=== PATIENT | male | born 1955 | race Caucasian/White ===

== ENCOUNTER 2017-09-23 13:42 | Inpatient (IN) | payer OTHER ==
[2017-09-23] VITALS (9 sets, daily range): BP systolic 85–105; BP diastolic 41–58
[~2017-09-23] VITALS: Ht 162.6 cm; Wt 61.0 kg
[2017-09-23] MEDS ORDERED: DEXTROSE 50% 25 GM / 50ML DISP.SYRIN. IV ONE ×3 (14:00→19:45)
[2017-09-23 14:23] LABS: BARBITURATES NEG (NEG); BENZODIAZEPINES NEG (NEG); CANNABINOIDS NEG (NEG); COCAINE NEG (NEG); METHADONE NEG (NEG); OPIATES POS (NEG); PHENCYCLIDINE NEG (NEG)
[2017-09-23 14:28] LABS: AMPHETAMINE/METHAMPHETAMINE NEG (NEG)
[2017-09-23] MEDS ORDERED: INSULIN REGULAR 100 UNIT/ML 3ML VIAL. IV ONE ×2 (14:30→17:00)
[2017-09-23] MEDS ORDERED: ALBUTEROL SULFATE 2.5 MG/3 ML NEBU. CONT NEB ONE (14:30)
[2017-09-23] MEDS ORDERED: SODIUM BICARB ADULT 8.4% 50 MEQ/50 ML DISP.SYRIN. IV ONE ×2 (14:30→21:00)
[2017-09-23 14:38] LABS: BACTERIA,URINE 0 /HPF (0-FEW); BILIRUBIN,URINE NEG (NEG); CLARITY,URINE CLEAR; COLOR,URINE AMBER; GLUCOSE,URINE NEG (NEG); NITRITE,URINE NEG (NEG); RBC,URINE 0 /HPF (0-2); UROBILINOGEN,URINE 1 mg/dL (0.2 mg/dL); WBC,URINE RARE /HPF (0-4)
[2017-09-23 14:39] LABS: HYALINE CASTS, URINE FEW /HPF
--- NOTE | 2017-09-23 14:44 | RAD ---
CT HEAD WO CONTRAST Indication: altered mental status Exposure: One or more of the following individualized dose reduction techniques were utilized for this examination: 1. Automated exposure control 2. Adjustment of the mA and/or kV according to patient size 3. Use of iterative reconstruction technique. Comparison: None are available. Contrast: None FINDINGS: Posterior fossa is unremarkable. No evidence of acute intracranial hemorrhage or abnormal extra-axial fluid collection. No evidence of mass effect or midline shift. Small well-defined low-density foci in the periventricular white matter bilaterally, likely small lacunar infarcts. Mild prominence of ventricles and sulci compatible with mild involutional change or atrophy. Mild arterial vascular calcification. Visualized orbits are unremarkable. Visualized paranasal sinuses and mastoids are clear. No acute calvarial abnormality. Impression: 1. Small bilateral white matter well-defined low density foci, likely small lacunar infarcts. 2. No evidence of acute intracranial hemorrhage or mass effect. Electronically signed by: Devin Sutherland MD (09/23/2017 2:40 PM) [id number]
--- NOTE | 2017-09-23 14:45 | RAD ---
PORTABLE CHEST 1V Clinical Indication: short of breath, unresponsive Comparison: None. Findings: Atherosclerotic aortic arch. Cardiac size is normal. There are increased interstitial markings. No focal airspace disease. There is no pneumothorax. No pleural effusion is appreciated. No acute bone abnormality. IMPRESSION: Increased interstitial markings. Considerations include interstitial edema or chronic interstitial lung disease. Electronically signed by: Edmund Murphy MD (09/23/2017 2:42 PM) [id number]
[2017-09-23 14:46] LABS: BGAS PH 7.18 (7.35-7.46)
[2017-09-23 14:49] LABS: BASO # 0.1 x10^3/uL (0.0-0.2); BASO % 1 % (0-3); EOS # 0.2 x10^3/uL (0.0-0.7); EOS % 2 % (0-3); HEMATOCRIT 51.2 % (39.0-53.0); HEMOGLOBIN 15.9 g/dL (13.0-17.5); LYMPH # 0.4 x10^3/uL (1.0-4.8); LYMPH % 4 % (24-48); MEAN CORPUSCULAR HEMOGLOBIN 26 pg (25-35); MEAN CORPUSCULAR HGB CONC 31 g/dL (31-37); MEAN CORPUSCULAR VOLUME 83 fL (79-100); MONO # 0.5 x10^3/uL (0.0-1.1); MONO % 6 % (0-9); NEUT # 8.4 x10^3uL (1.8-7.7); NEUT % 88 % (31-73); PLATELET COUNT 179 x10^3/uL (140-400); RED BLOOD COUNT 6.16 x10^6/uL (4.30-5.70); RED CELL DISTRIBUTION WIDTH 22.3 % (11.5-14.5); WHITE BLOOD COUNT 9.6 x10^3/uL (4.0-11.0)
[2017-09-23 15:06] LABS: ALBUMIN 2.5 g/dL (3.4-5.0); ALBUMIN/GLOBULIN RATIO 0.7 (1.0-1.7); MAGNESIUM 2.3 mg/dL (1.8-2.4); TOTAL BILIRUBIN 2.6 mg/dL (0.2-1.0); TOTAL PROTEIN 6.3 g/dL (6.4-8.2)
[2017-09-23 15:17] LABS: CREATININE 1.4 mg/dL (0.7-1.3); GFR 51.4
[2017-09-23 15:21] LABS: POTASSIUM 6.2 mmol/L (3.5-5.1)
[2017-09-23] MEDS ORDERED: ALBU2.5V14 NEB (15:46)
[2017-09-23] MEDS ORDERED: SPIR100T4 PO (15:46)
[2017-09-23] MEDS ORDERED: IPRA3AMP29 NEB (15:46)
[2017-09-23] MEDS ORDERED: MORP15TA PO (15:46)
[2017-09-23] MEDS ORDERED: TRIA15CR50 TP (15:46)
[2017-09-23] MEDS ORDERED: HYDR25CA PO (15:46)
[2017-09-23] MEDS ORDERED: PANT40TA5 PO (15:46)
[2017-09-23] MEDS ORDERED: ALBU8.5H8 INH (15:46)
[2017-09-23] MEDS ORDERED: CALC200T3 PO (15:46)
[2017-09-23] MEDS ORDERED: LACT10SO PO (15:46)
[2017-09-23] MEDS ORDERED: LISI40TA PO (15:46)
[2017-09-23] MEDS ORDERED: FURO40TA4 PO (15:46)
[2017-09-23] MEDS ORDERED: AMLO10TA4 PO (15:46)
--- NOTE | 2017-09-23 16:31 | PHYS DOC ---
Past History Past Medical History: COPD, Hepatitis, Liver Disease Past Surgical History: Other Additional Alcohol Information: UnKnown Critical Care Time Critical care time was [100] minutes exclusive of procedures. Adult General Chief Complaint Chief Complaint: ALTERED MENTAL STATUS HPI HPI Patient is a 62-year-old incarcerated male patient brought in by EMS because of altered level of consciousness. Patient had history of chronic COPD on home oxygen and hepatitis C and cirrhosis and investigation hepatic disease with hepatocarcinoma had gradual onset of altered level of consciousness since yesterday with worsening his condition today. Patient usually was able to talk but today he was not talking and responding and the present physician gave report to [facility] for admission but EMS brought patient here because of lack of emergency crew and ambulance to go for far from their station. EMS reported that his O2 sat was 88% at 2 L of oxygen that improved to 90s with increasing of the oxygen. Patient is not able to give history. Review of Systems Review of Systems Unable to obtain because of medical condition Current Medications Current Medications Current Medications Medications (Trade) Dose Ordered Sig/Julian Start Time Stop Time Status Last Admin Dose Admin Albuterol Sulfate (Ventolin) 10 mg 1X ONCE 09/23/17 14:30 09/23/17 14:31 DC 09/23/17 14:54 10 MG Dextrose 25 gm 1X ONCE 09/23/17 14:00 09/23/17 14:18 DC 09/23/17 15:28 25 GM Insulin Human Regular (HumuLIN R VIAL) 10 unit 1X ONCE 09/23/17 14:30 09/23/17 14:31 DC 09/23/17 15:28 10 UNIT Sodium Bicarbonate (Sodium Bicarb Adult 8.4% Syr) 50 meq 1X ONCE 09/23/17 14:30 09/23/17 14:31 DC 09/23/17 15:27 50 MEQ Allergies Allergies Allergies Coded Allergies Type Severity Reaction Last Updated Verified No Known Drug Allergies 09/23/17 No Physical Exam Physical Exam Constitutional: Moderate distress, non-toxic appearance. [] HENT: Normocephalic, atraumatic. Eyes: PERRLA, EOMI, conjunctiva normal, no discharge. [] Neck: Normal range of motion, no tenderness, supple, no stridor. [] Cardiovascular: Tachycardia, no murmur [] Lungs & Thorax: Moderate respiratory distress with intercostal retraction and tachypnea and bilateral rhonchi Abdomen: Moderate to severe distention with fluid with umbilical hernia,bowel sounds hypoactive, soft, no tenderness. Skin: Warm, dry, no erythema, no rash. [] Back: No tenderness, no CVA tenderness. [] Extremities: Bilateral lower extremity 2+ edema Neurologic: Patient keeps his eyes closed but follows the commands, does not talk, moves all extremities Current Patient Data Vital Signs Vital Signs Date Time Temp Pulse Resp B/P (MAP) Pulse Ox O2 Delivery O2 Flow Rate FiO2 09/23/17 16:00 100 BiPAP/CPAP 09/23/17 14:57 71 18 96/62 (73) 09/23/17 14:04 98.0 Lab Results Laboratory Tests Test 09/23/17 14:00 09/23/17 14:18 09/23/17 14:28 Urine Collection Type U cath Urine Color Amanda Urine Clarity Clear Urine pH 5.0 Urine Specific [place] 1.015 Urine Protein Neg (NEG-TRACE) Urine Glucose (UA) Neg mg/dL (NEG) Urine Ketones (Stick) Neg mg/dL (NEG) Urine Blood Neg (NEG) Urine Nitrite Neg (NEG) Urine Bilirubin Neg (NEG) Urine Urobilinogen Dipstick 1 mg/dL (0.2 mg/dL) Urine Leukocyte Esterase Neg (NEG) Urine RBC 0 /HPF (0-2) Urine WBC Rare /HPF (0-4) Urine Squamous Epithelial Cells None /LPF Urine Bacteria 0 /HPF (0-FEW) Urine Hyaline Casts Few /HPF Urine Mucus Slight /LPF Urine Opiates Screen Pos (NEG) Urine Methadone Screen Neg (NEG) Urine Barbiturates Neg (NEG) Urine Phencyclidine Screen Neg (NEG) Urine Amphetamine/Methamphetamine Neg (NEG) Urine Benzodiazepines Screen Neg (NEG) Urine Cocaine Screen Neg (NEG) Urine Cannabinoids Screen Neg (NEG) Urine Ethyl Alcohol Neg (NEG) Blood pH 7.18 (7.35-7.46) *L Blood Gas PCO2 93 mmHg (35-46) *H Blood Gas PO2 39 mmHg (80-100) *L Blood Gas HCO3 35 mmol/L (21-28) H Arterial Bld O2 Saturation (Calc) 57 % (92-99) L FiO2 55 % White Blood Count 9.6 x10^3/uL (4.0-11.0) Red Blood Count 6.16 x10^6/uL (4.30-5.70) H Hemoglobin 15.9 g/dL (13.0-17.5) Hematocrit 51.2 % (39.0-53.0) Mean Corpuscular Volume 83 fL (79-100) Mean Corpuscular Hemoglobin 26 pg (25-35) Mean Corpuscular Hemoglobin Concent 31 g/dL (31-37) Red Cell Distribution Width 22.3 % (11.5-14.5) H Platelet Count 179 x10^3/uL (140-400) Neutrophils (%) (Auto) 88 % (31-73) H Lymphocytes (%) (Auto) 4 % (24-48) L Monocytes (%) (Auto) 6 % (0-9) Eosinophils (%) (Auto) 2 % (0-3) Basophils (%) (Auto) 1 % (0-3) Neutrophils # (Auto) 8.4 x10^3uL (1.8-7.7) H Lymphocytes # (Auto) 0.4 x10^3/uL (1.0-4.8) L Monocytes # (Auto) 0.5 x10^3/uL (0.0-1.1) Eosinophils # (Auto) 0.2 x10^3/uL (0.0-0.7) Basophils # (Auto) 0.1 x10^3/uL (0.0-0.2) Prothrombin Time 12.5 SEC (9.4-11.4) H Prothrombin Time INR 1.2 (0.9-1.1) H PTT 25 SEC (23-33) Sodium Level 141 mmol/L (136-145) Potassium Level 6.2 mmol/L (3.5-5.1) *H Chloride Level 104 mmol/L (98-107) Carbon Dioxide Level 33 mmol/L (21-32) H Anion Gap 4 (6-14) L Blood Urea Nitrogen 47 mg/dL (8-26) H Creatinine 1.4 mg/dL (0.7-1.3) H Estimated GFR (Cockcroft-Gault) 51.4 BUN/Creatinine Ratio 34 (6-20) H Glucose Level 125 mg/dL (70-99) H Lactic Acid Level 1.1 mmol/L (0.4-2.0) Calcium Level 8.0 mg/dL (8.5-10.1) L Magnesium Level 2.3 mg/dL (1.8-2.4) Total Bilirubin 2.6 mg/dL (0.2-1.0) H Aspartate Amino Transferase (AST) 272 U/L (15-37) H Alanine Aminotransferase (ALT) 36 U/L (16-63) Alkaline Phosphatase 273 U/L (46-116) H Ammonia 41 mcmol/L (11-34) H Creatine Kinase 43 U/L (39-308) Creatine Kinase MB (Mass) 1.6 ng/mL (0.0-3.6) Creatine Kinase MB Relative Index 3.7 % (0-4) Troponin I Quantitative < 0.017 ng/mL (0-0.055) RP-Coc-V-Type Natriuretic Peptide 900 pg/mL (0-124) H Total Protein 6.3 g/dL (6.4-8.2) L Albumin 2.5 g/dL (3.4-5.0) L Albumin/Globulin Ratio 0.7 (1.0-1.7) L Lipase 380 U/L (73-393) EKG EKG EKG interpreted by me. EKG at 1344 showed normal sinus rhythm at rate of 86, low QRS voltage, no acute ST and T-wave abnormalities.[] Radiology/Procedures Radiology/Procedures [[address] [address] IMAGING REPORT Signed PATIENT: MARCELINO VARGAS ACCOUNT: [id number] : 1955 LOCATION: ER AGE: 62 SEX: M EXAM STATUS: REG ER ORD. PHYSICIAN: REYNALDO CORADO MD REASON: ALOC PROCEDURE: PORTABLE CHEST 1V PORTABLE CHEST 1V Clinical Indication: short of breath, unresponsive Comparison: None. Findings: Atherosclerotic aortic arch. Cardiac size is normal. There are increased interstitial markings. No focal airspace disease. There is no pneumothorax. No pleural effusion is appreciated. No acute bone abnormality. IMPRESSION: Increased interstitial markings. Considerations include interstitial edema or chronic interstitial lung disease. Electronically signed by: Edmund Murphy MD (09/23/2017 2:42 PM) [id number] DICTATED AND SIGNED BY: EDMUND MURPHY MD DATE: 09/23/17 1440 CC: REYNALDO CORADO MD; JUVENTINO BARRIOS APRN ~ ][place] [address] IMAGING REPORT Signed PATIENT: MARCELINO VARGAS ACCOUNT: [id number] : 1955 LOCATION: ER AGE: 62 SEX: M EXAM STATUS: REG ER ORD. PHYSICIAN: REYNALDO CORADO MD REASON: ALOC PROCEDURE: CT HEAD WO CONTRAST CT HEAD WO CONTRAST Indication: altered mental status Exposure: One or more of the following individualized dose reduction techniques were utilized for this examination: 1. Automated exposure control 2. Adjustment of the mA and/or kV according to patient size 3. Use of iterative reconstruction technique. Comparison: None are available. Contrast: None FINDINGS: Posterior fossa is unremarkable. No evidence of acute intracranial hemorrhage or abnormal extra-axial fluid collection. No evidence of mass effect or midline shift. Small well-defined low-density foci in the periventricular white matter bilaterally, likely small lacunar infarcts. Mild prominence of ventricles and sulci compatible with mild involutional change or atrophy. Mild arterial vascular calcification. Visualized orbits are unremarkable. Visualized paranasal sinuses and mastoids are clear. No acute calvarial abnormality. Impression: 1. Small bilateral white matter well-defined low density foci, likely small lacunar infarcts. 2. No evidence of acute intracranial hemorrhage or mass effect. Electronically signed by: Devin Kent MD (09/23/2017 2:40 PM) [id number] DICTATED AND SIGNED BY: DEVIN KENT MD DATE: 09/23/17 1434 CC: REYNALDO CORADO MD; JUVENTINO BARRIOS APRN ~ Course & Med Decision Making Course & Med Decision Making Pertinent Labs and Imaging studies reviewed. (See chart for details) Evaluation of patient in ER showed 62-year-old male patient with history of COPD and cirrhosis and ascites and liver cancer brought in by EMS because of altered level of consciousness. According to snf physician note he requested DNR but haven't signed the DNR form yet. Patient had respiratory distress and is started on BiPAP. 2 IV line was obtained and [id number] i-STAT was performed with potassium of 6.3 but is of concern for hemolyzed test CMP was requested and waiting for the result finally confirmed potassium of 6.2 and treatment for hyperkalemia was given. Patient gradually became awake and answered the question and did not want intubation or chest compression. Patient condition gradually improved with BiPAP treatment of hyperkalemia. Dr. Pelaez was informed at 1405 and agreed with admitting the patient to ICU and requested neurology consult. Dragon Disclaimer Dragon Disclaimer This electronic medical record was generated, in whole or in part, using a voice recognition dictation system. Departure Departure: Impression: Primary Impression: Acute respiratory distress Additional Impressions: CO2 narcosis Altered level of consciousness Hyperkalemia Hepatorenal failure Acute respiratory acidosis Abnormal liver function tests COPD exacerbation Disposition: ADMITTED INPATIENT (at 1406) Admitting Physician: Other (Dr. Dominic Pelaez at 1405) Condition: GUARDED Referrals: JUVENTINO BARRIOS APRN (PCP) Problem Qualifiers REYNALDO CORADO MD Sep 23, 2017 16:31
[2017-09-23] MEDS ORDERED: ALBUTEROL SULFATE 2.5 MG/3 ML NEBU. NEB ONE (17:00)
[2017-09-23] MEDS ORDERED: IV NORMAL SALINE 1,000ML 1,000 ML IV SCH ×2 (17:00→21:30)
[2017-09-23] MEDS ORDERED: SODIUM POLYSTYRENE SULFONATE 15 GM/60 ML ORAL.SUSP. PR ONE (17:00)
[2017-09-23] MEDS ORDERED: FUROSEMIDE 20 MG/2 ML VIAL IVP ONE (19:00)
--- NOTE | 2017-09-23 19:25 | EKG ---
[address] [address] Test Date: 2017-09-23 Test Time: 18:22:25 Pat Name: MARCELINO VARGAS Department: Room: ICU06 1 Gender: M Project Manager Senior: : 1955 Requested By: REYNALDO CORADO Order Number: [id number] Reading MD: Alex Schroeder MD Measurements Intervals [place] Rate: 83 P: 90 MO: 128 QRS: 64 QRSD: 72 T: 57 QT: 366 QTc: 431 Interpretive Statements SINUS RHYTHM ATRIAL PREMATURE COMPLEX(ES) Electronically Signed On 09-26-2017 10:00:47 CDT by Alex Schroeder MD
[2017-09-23 20:13] LABS: CALCIUM 7.8 mg/dL (8.5-10.1); CREATININE 1.5 mg/dL (0.7-1.3); GFR 47.4; POTASSIUM 5.7 mmol/L (3.5-5.1)
[2017-09-23] MEDS: IV NORMAL SALINE 1,000ML 1,000 ML IV SCH (20:19)
[2017-09-23 20:40] LABS: BGAS PH 7.18 (7.35-7.46)
[2017-09-23] MEDS ORDERED: FUROSEMIDE 40 MG/4 ML VIAL IVP ONE (21:30)
[2017-09-23] MEDS ORDERED: ALBUTEROL SULFATE 2.5 MG/3 ML NEBU. NEB PRN (21:30)
[2017-09-23] MEDS ORDERED: methylPREDNISolone SOD SUCC PF 125 MG/2 ML VIAL. IV SCH (22:00)
[2017-09-23 22:46] LABS: ANISOCYTOSIS PRESENT; BURR CELLS FEW; MICROCYTOSIS PRESENT; OVALOCYTES FEW; PLT ESTIMATE ADEQUATE (ADEQUATE); POLYCHROMASIA PRESENT
[2017-09-23] MEDS: SODIUM POLYSTYRENE SULFONATE 15 GM/60 ML ORAL.SUSP. PR SCH (23:58)
[2017-09-23] MEDS: methylPREDNISolone SOD SUCC PF 125 MG/2 ML VIAL. IV SCH (23:58)
[2017-09-24] VITALS (12 sets, daily range): BP systolic 81–112; BP diastolic 42–83
[2017-09-24] MEDS ORDERED: methylPREDNISolone SOD SUCC PF 125 MG/2 ML VIAL. IV SCH
[2017-09-24] MEDS: IV NORMAL SALINE 1,000ML 1,000 ML IV SCH ×2 (01:03→05:50)
--- NOTE | 2017-09-24 03:45 | CONS ---
DATE OF CONSULTATION: 09/23/2017 NEUROLOGY CONSULTATION REFERRING PHYSICIAN: Dr. Pelaez. REASON FOR CONSULTATION: Acute mental status changes. HISTORY OF PRESENT ILLNESS: This is a 63-year-old inmate male who was admitted through Emergency Room today after he presented with 24 hours of severe mental status changes. The patient is unable to provide any history. The patient was brought by EMS and he was found to have oxygen saturation of 88% on 2 L via nasal cannula. The patient was not able to provide any information and he was not responding to commands. Initial nonenhanced head CT scan revealed no acute intracranial process, but showed small-vessel ischemic changes of the white matter. The patient was found to have hyperkalemia with a potassium of around 6. There is no history of seizure or recent history of stroke. 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 SOCIAL HISTORY: The patient is an inmate. He is a smoker. There is no history of recent alcohol abuse or illegal drug use. FAMILY HISTORY: Not obtainable. CURRENT HOME MEDICATIONS: Albuterol inhaler, amlodipine 10 mg p.o. daily, calcium carbonate, furosemide 40 mg daily, hydroxyzine 25 mg t.i.d. p.r.n., lisinopril 40 mg daily, pantoprazole 40 mg daily, spironolactone 100 mg daily. ALLERGIES: No known drug allergies. REVIEW OF SYSTEMS: A 10-point review of systems was performed, as mentioned in the history of present illness. PHYSICAL EXAMINATION: GENERAL: Well-developed, well-nourished male, in no acute distress. VITAL SIGNS: He weighs 133 pounds, height 64 inches. Blood pressure 105/49, respiratory rate 16, pulse 72, temperature afebrile, oxygen saturation 89% on CPAP. HEENT: Normocephalic, atraumatic, otherwise unremarkable. NECK: Supple. Negative for carotid bruit, lymphadenopathy, or thyromegaly. LUNGS: Diminished breath sounds with scattered rhonchi. CARDIOVASCULAR: Regular rhythm, normal S1 and S2, no murmur. ABDOMEN: The abdomen is distended with decreased bowel sounds. Umbilical hernia was found, but no bowel mass, organomegaly, or tenderness. EXTREMITIES: Negative for cyanosis, clubbing. Positive for 2+ pitting edema. NEUROLOGIC: Mental status: The patient laid down flat in the bed with CPAP and oxygen supplements. He follows 1-step commands. Further evaluation of his mental status is limited at this time. Cranial nerves: Pupils are equal and reactive to light and accommodation. The extraocular movements are intact. There is no nystagmus. There is no facial motor or sensory deficit. Hearing appears to be intact. Further evaluation is limited at this time. Motor examination: The patient moves his upper and lower extremities equally. The strength is 4/5 throughout. Sensory examination revealed normal pinprick and light touch senses throughout. Deep tendon reflexes were symmetric and hypoactive with absent Achilles responses. Gait not tested. LABORATORY DATA: CBC revealed white blood cells of 9600, hemoglobin 15.9, hematocrit 51.2, platelet count 179,000. There is a left shift. Chemistry: Sodium 146, potassium 5.7, chloride 107, CO2 34, BUN 49, creatinine 1.5, glucose 77. Lactic acid is 1.1. Calcium 7.8, magnesium 2.2. Liver enzymes elevated with AST of 272 with normal ALT at 36. Ammonia level is high at 35, down from 41. Cardiac enzymes are normal. Troponin level is normal. NPB is high at 900 with low albumin at 2.5 and normal lipase. Urinalysis; negative for urinary tract infection. Urine drug screen is positive for opiates. DIAGNOSTIC DATA: Nonenhanced CT scan as mentioned above in the history of present illness. A chest x-ray revealed increased interstitial marking consistent with edema versus chronic lung disease. IMPRESSION: 1. Acute encephalopathy likely due to metabolic, infectious, and hypoxic type. 2. End-stage hepatic and renal failure. 3. Hyperkalemia. 4. Multiple medical problems include chronic obstructive pulmonary disease, hypertension, and gastroesophageal reflux disease. 5. History of hepatitis C and probably carcinoma and cirrhosis. RECOMMENDATIONS: 1. Treat the underlying metabolic and possible infectious encephalopathy. 2. Correct hyperkalemia and careful hydration and treat the underlying respiratory failure. 3. EEG may confirm encephalopathic pathway. M Talib MAYES MD DR: MAYNOR/rosendo JOB#: [id number] / [id number]
[2017-09-24] MEDS: methylPREDNISolone SOD SUCC PF 125 MG/2 ML VIAL. IV SCH (05:19)
[2017-09-24] MEDS: SODIUM POLYSTYRENE SULFONATE 15 GM/60 ML ORAL.SUSP. PR SCH ×2 (06:00→07:49)
[2017-09-24 06:15] LABS: BGAS PH 7.22 (7.35-7.46)
[2017-09-24 06:54] LABS: BASO % 0 % (0-3); EOS % 0 % (0-3); HEMATOCRIT 47.4 % (39.0-53.0); HEMOGLOBIN 14.7 g/dL (13.0-17.5); LYMPH # 0.3 x10^3/uL (1.0-4.8); LYMPH % 5 % (24-48); MEAN CORPUSCULAR HEMOGLOBIN 26 pg (25-35); MEAN CORPUSCULAR HGB CONC 31 g/dL (31-37); MEAN CORPUSCULAR VOLUME 83 fL (79-100); MONO # 0.2 x10^3/uL (0.0-1.1); MONO % 3 % (0-9); NEUT # 5.9 x10^3uL (1.8-7.7); NEUT % 92 % (31-73); PLATELET COUNT 135 x10^3/uL (140-400); RED BLOOD COUNT 5.71 x10^6/uL (4.30-5.70); RED CELL DISTRIBUTION WIDTH 22.2 % (11.5-14.5); WHITE BLOOD COUNT 6.4 x10^3/uL (4.0-11.0)
[2017-09-24] MEDS ORDERED: LACTULOSE 20 GM/30 ML SOLUTION. PO ONE (07:00)
[2017-09-24 07:17] LABS: ALBUMIN 2.1 g/dL (3.4-5.0); ALBUMIN/GLOBULIN RATIO 0.7 (1.0-1.7); CALCIUM 7.4 mg/dL (8.5-10.1); CREATININE 1.5 mg/dL (0.7-1.3); GFR 47.4; TOTAL BILIRUBIN 2.4 mg/dL (0.2-1.0); TOTAL PROTEIN 5.1 g/dL (6.4-8.2)
[2017-09-24 07:20] LABS: POTASSIUM 6.2 mmol/L (3.5-5.1)
[2017-09-24] MEDS ORDERED: DEXTROSE 50% 25 GM / 50ML DISP.SYRIN. IV ONE (07:28)
[2017-09-24] MEDS ORDERED: INSULIN REGULAR 100 UNIT/ML 3ML VIAL. IV ONE (08:00)
--- NOTE | 2017-09-24 08:02 | RAD ---
Indication:COPD TECHNIQUE:Portable AP chest X-ray COMPARISON:09/23/2017 FINDINGS: Heart is normal in size. Bilateral coarse interstitial opacities are seen. No focal consolidation. No pneumothorax or pleural effusion. Visualized bony thorax is within normal limits. IMPRESSION: Bilateral interstitial opacities may be secondary to chronic interstitial changes, mild interstitial pulmonary edema or atypical/viral infection. Electronically signed by: Sam Aiken DO (09/24/2017 7:58 AM) [facility]
--- NOTE | 2017-09-24 08:28 | PDOC1 ---
History of Present Illness History of Present Illness Patient is a 62-year-old incarcerated male with history including COPD and end- stage liver and renal disease brought to the emergency department in respiratory failure with altered mental status. The assisted physician reported that the patient had gradual decreased level of consciousness over 2 days and became unresponsive so he was brought to the emergency department. EMS reported initially the patient's oxygen saturation was 88% on room air which did improve to the low 90s with 2 L of O2 per nasal cannula. On arrival to the emergency department the patient was initially unresponsive however with treatment is reported that he did temporarily regain awareness and expressed his wishes not to be intubated or have chest compressions, the assisted physician had also stated this was the patient's wishes but no actual DNR form had been signed. In the emergency department he was afebrile with temperature 98F, pulse 71 bpm, 18 respirations, blood pressure 96/62 and oxygen saturation 100% on BiPAP. His EKG was normal sinus at 86 bpm, low voltage and no ST-T abnormalities. His CBC was unremarkable, PT 12.5, INR 1.2, his potassium was 6.2 , BUN 47, creatinine 1.4. Initial ABG had a pH of 7.18, PCO2 93, PO2 39, bicarbonate 35, oxygen saturation 57%, FiO2 55% BiPAP. Portable chest x-ray read as Increased interstitial markings, considerations include interstitial edema or chronic interstitial lung disease. Head CT revealed small lacunar infarcts no acute intracranial process. The patient was admitted to the ICU for further evaluation and treatment of acute respiratory failure with a COPD exacerbation and complications resulting from his liver and kidney disease. Through the night he received treatments of Kayexalate SD, normal saline, dextrose and insulin, albuterol nebulizer treatments, and Solu-Medrol intravenously. Lasix became necessary as he did begin to sound wet and for several hours he did exhibit agonal respirations. Early this morning he did regain awareness and took off his BiPAP currently with a Ventimask. When I evaluated him this morning he was awake and alert complaining of hunger and pain from his leg iron. His primary concern is that he had apparently ordered pizza yesterday at the assisted and he is complaining that his luck is that he missed out on receiving it. Although he still thinks its yesterday he does appear to be alert and oriented however the guardian family member who's been with him says he does have periods of confusion. This morning's labs reveal platelets have dropped slightly to 135, potassium did come down in the night to 5.7 but is back up to 6.2, BUN has worsened to 53 and creatinine up to 1.5. ED ammonia was 41 it's up to 92, this morning's blood gas is overall improved with pH 7.22 , PCO2 of 82, PO2 73, bicarbonate 34, oxygen saturation 91%, FiO2 40% BiPAP. I discussed the patient with Dr. Richmond who accepts the patient for transfer to [facility] ICU for treatment at a higher level of care. Available history is listed: Past medical history: COPD, hepatic carcinoma, hepatitis C, cirrhosis, renal failure, peripheral vascular disease, venous stasis ulcers, peripheral edema Past surgical history: Unavailable Social history: Patient is incarcerated for 25 years, extensive tobacco history currently denying alcohol or illicit substances Chief Complaint: ALTERED MENTAL STATUS Allergies: Coded Allergies: No Known Drug Allergies (Unverified , 09/23/17) Review of Systems Review Of Systems Review of systems as per history of present illness, an accurate thorough review of systems is unreliable due to patient's current condition Medications Current Medications Dextrose 25 gm 1X ONCE IV Last administered on 09/23/17at 15:28; Start at 14:00; Stop 09/23/17 at 14:18; Status DC Insulin Human Regular (HumuLIN R VIAL) 10 unit 1X ONCE IV Last administered on 09/23/17at 15:28; Start 09/23/17 at 14:30; Stop 09/23/17 at 14:31; Status DC Albuterol Sulfate (Ventolin) 10 mg 1X ONCE CONT NEB Last administered on at 14:54; Start 09/23/17 at 14:30; Stop 09/23/17 at 14:31; Status DC Sodium Bicarbonate (Sodium Bicarb Adult 8.4% Syr) 50 meq 1X ONCE IV Last administered on 09/23/17at 15:27; Start 09/23/17 at 14:30; Stop 09/23/17 at 14:31 ; Status DC Sodium Chloride 1,000 ml @ 1,000 mls/hr Q1H IV Last administered on 09/23/17at 17:41; Start 09/23/17 at 17:00; Stop 8/17/18 at 17:59; Status DC Sodium Polystyrene Sulfonate (Kayexalate) 30 gm 1X ONCE SD Last administered on 09/23/17at 17:42; Start 09/23/17 at 17:00; Stop 09/23/17 at 17:08; Status DC Methylprednisolone Sodium Succinate (SOLU-Medrol 125MG VIAL) 125 mg Q8HRS IV Last administered on 09/23/17at 20:59; Start 09/23/17 at 22:00; Stop 09/23/17 at 22:00; Status DC Albuterol Sulfate (Ventolin) 2.5 mg 1X ONCE NEB Last administered on at 17:42; Start 09/23/17 at 17:00; Stop 09/23/17 at 17:08; Status DC Dextrose 25 gm 1X ONCE IV Last administered on 09/23/17at 17:41; Start at 17:00; Stop 09/23/17 at 17:08; Status DC Insulin Human Regular (HumuLIN R VIAL) 10 unit 1X ONCE IV Last administered on 09/23/17at 17:34; Start 09/23/17 at 17:00; Stop 09/23/17 at 17:08; Status DC Sodium Chloride 1,000 ml @ 200 mls/hr Q5H IV Last administered on 09/24/17at 05 :50; Start 09/23/17 at 18:30 Furosemide (Lasix) 20 mg 1X ONCE IVP Last administered on 09/23/17at 19:15; Start 09/23/17 at 19:00; Stop 09/23/17 at 19:01; Status DC Dextrose 25 gm 1X ONCE IV Last administered on 09/23/17at 19:36; Start at 19:45; Stop 09/23/17 at 19:46; Status DC Sodium Bicarbonate (Sodium Bicarb Adult 8.4% Syr) 50 meq 1X ONCE IV Last administered on 09/23/17at 20:59; Start 09/23/17 at 21:00; Stop 09/23/17 at 21:01 ; Status DC Sodium Chloride 1,000 ml @ 200 mls/hr Q5H IV ; Start 09/23/17 at 21:30; Stop at 02:29; Status DC Methylprednisolone Sodium Succinate (SOLU-Medrol 125MG VIAL) 125 mg Q6HRS IV ; Start 09/24/17 at 00:00; Stop 09/24/17 at 00:00; Status DC Albuterol/ Ipratropium (Duoneb) 3 ml QID NEB Last administered on 09/24/17at 06: 04; Start 09/24/17 at 09:00 Sodium Polystyrene Sulfonate (Kayexalate) 50 gm Q6HRS SD Last administered on at 23:58; Start 09/24/17 at 00:00 Furosemide (Lasix) 40 mg 1X ONCE IVP Last administered on 09/23/17at 21:54; Start 09/23/17 at 21:30; Stop 09/23/17 at 21:34; Status DC Albuterol Sulfate (Ventolin) 2.5 mg PRN Q4HRS PRN NEB SHORTNESS OF BREATH; Start 09/23/17 at 21:30 Methylprednisolone Sodium Succinate (SOLU-Medrol 125MG VIAL) 125 mg Q6HRS IV Last administered on 09/24/17at 05:19; Start 09/24/17 at 00:00 Lactulose (Lactulose) 20 gm 1X ONCE PO Last administered on 09/24/17at 06:46; Start 09/24/17 at 07:00; Stop 09/24/17 at 07:01; Status DC Insulin Human Regular (HumuLIN R VIAL) 10 unit 1X ONCE IV ; Start 09/24/17 at 08:00; Stop 09/24/17 at 08:01 Dextrose 25 gm STK-MED ONCE IV ; Start 09/24/17 at 07:28; Stop 09/24/17 at 07:30 ; Status DC Active Scripts Active Reported Vistaril (Hydroxyzine Pamoate) 25 Mg Capsule 1 Cap PO TID Tums (Calcium Carbonate) 200 Mg Tab.chew 200 Mg PO BID PRN Triamcinolone Acetonide 15 Gm Cream..g. 1 Rich TP BID Spironolactone 100 Mg Tablet 1 Tab PO DAILY Pantoprazole Sodium 40 Mg Tablet.dr 40 Mg PO DAILY Norvasc (Amlodipine Besylate) 10 Mg Tablet 1 Tab PO DAILY Morphine Sulfate 15 Mg Tablet 1 Tab PO Q8HRS PRN Lisinopril 40 Mg Tablet 1 Tab PO DAILY Lactulose 10 Gm/15 Ml Solution 10 Gm PO DAILY Duoneb 0.5-3(2.5) Mg/3 Ml (Albuterol/Ipratropium) 3 Ml Ampul.neb 3 Ml NEB QID PRN Furosemide 40 Mg Tablet 40 Mg PO BID Albuterol Sulfate Conc Neb Soln (Albuterol Sulfate) 2.5 Mg/0.5 Ml Vial.neb 2.5 Mg NEB Q6HRS PRN Proair Hfa Inhaler (Albuterol Sulfate) 8.5 Gm Hfa.aer.ad 1 Puff INH PRN Q6HRS PRN Exam Vital Signs Vital Signs Date Time Temp Pulse Resp B/P (MAP) Pulse Ox O2 Delivery O2 Flow Rate FiO2 09/24/17 07:00 97.8 82 20 91/60 (70) 92 Venturi Mask General Appearance: Alert, Other (mild respiratory distress however no conversational dyspnea with supplemental O2, appears to be alert with periods of confusion) HEENT: Atraumatic, PERRLA, EOMI, Other (dry membranes, scleral icterus) Respiratory: Other (coarse breath sounds bilaterally decreased with rales at the bases, fair air movement) Heart: Normal S1, Normal S2, No murmurs Abdominal: Soft (mildly distended, no tenderness bowel sounds present and no masses) Extremities: Other (2+ pitting lower extremity edema, the lower legs with sterile dressing for chronic stasis ulcers) Neuro: Normal speech, Cranial nerves 3-12 NL (no lateralizing neuro deficits) Psych/Mental Status: Other (patient is awake and alert, normal speech, mood appears to be normal, appears to be oriented with periods of confusion) Assessment/Plan Assessment/Plan Acute respiratory failure COPD exacerbation Hepatic encephalopathy Respiratory acidosis Hyperkalemia Acute kidney injury CHF Hepatic carcinoma/hepatitis C/cirrhosis, end-stage liver disease DNR status Repeat insulin and dextrose intravenously, change Kayexalate to by mouth for hyperkalemia and lactulose for encephalopathy, continue current treatments for respiratory support. Transfer to [facility] ICU for higher level of care. COURSE Allergies Coded Allergies Type Severity Reaction Last Updated Verified No Known Drug Allergies 09/23/17 No Laboratory Tests Test 09/23/17 14:00 09/23/17 14:18 09/23/17 14:28 09/23/17 18:29 Urine Collection Type U cath Urine Color Amanda Urine Clarity Clear Urine pH 5.0 Urine Specific [place] 1.015 Urine Protein Neg (NEG-TRACE) Urine Glucose (UA) Neg mg/dL (NEG) Urine Ketones (Stick) Neg mg/dL (NEG) Urine Blood Neg (NEG) Urine Nitrite Neg (NEG) Urine Bilirubin Neg (NEG) Urine Urobilinogen Dipstick 1 mg/dL (0.2 mg/dL) Urine Leukocyte Esterase Neg (NEG) Urine RBC 0 /HPF (0-2) Urine WBC Rare /HPF (0-4) Urine Squamous Epithelial Cells None /LPF Urine Bacteria 0 /HPF (0-FEW) Urine Hyaline Casts Few /HPF Urine Mucus Slight /LPF Urine Opiates Screen Pos (NEG) Urine Methadone Screen Neg (NEG) Urine Barbiturates Neg (NEG) Urine Phencyclidine Screen Neg (NEG) Urine Amphetamine/Methamphetamine Neg (NEG) Urine Benzodiazepines Screen Neg (NEG) Urine Cocaine Screen Neg (NEG) Urine Cannabinoids Screen Neg (NEG) Urine Ethyl Alcohol Neg (NEG) Blood Gas pH 7.18 (7.35-7.46) Blood Gas PCO2 93 mmHg (35-46) Blood Gas PO2 39 mmHg (80-100) Blood Gas HCO3 35 mmol/L (21-28) Arterial Bld O2 Saturation (Calc) 57 % (92-99) FiO2 55 % White Blood Count 9.6 x10^3/uL (4.0-11.0) Red Blood Count 6.16 x10^6/uL (4.30-5.70) Hemoglobin 15.9 g/dL (13.0-17.5) Hematocrit 51.2 % (39.0-53.0) Mean Corpuscular Volume 83 fL (79-100) Mean Corpuscular Hemoglobin 26 pg (25-35) Mean Corpuscular Hemoglobin Concent 31 g/dL (31-37) Red Cell Distribution Width 22.3 % (11.5-14.5) Platelet Count 179 x10^3/uL (140-400) Neutrophils (%) (Auto) 88 % (31-73) Lymphocytes (%) (Auto) 4 % (24-48) Monocytes (%) (Auto) 6 % (0-9) Eosinophils (%) (Auto) 2 % (0-3) Basophils (%) (Auto) 1 % (0-3) Neutrophils # (Auto) 8.4 x10^3uL (1.8-7.7) Lymphocytes # (Auto) 0.4 x10^3/uL (1.0-4.8) Monocytes # (Auto) 0.5 x10^3/uL (0.0-1.1) Eosinophils # (Auto) 0.2 x10^3/uL (0.0-0.7) Basophils # (Auto) 0.1 x10^3/uL (0.0-0.2) Platelet Estimate Adequate (ADEQUATE) Polychromasia Present Anisocytosis Present Microcytosis Present Macrocytosis Present Ovalocytes Few Stomatocytes Trego Cells Few Prothrombin Time 12.5 SEC (9.4-11.4) Prothromb Time International Ratio 1.2 (0.9-1.1) Activated Partial Thromboplast Time 25 SEC (23-33) Sodium Level 141 mmol/L (136-145) Potassium Level 6.2 mmol/L (3.5-5.1) Chloride Level 104 mmol/L (98-107) Carbon Dioxide Level 33 mmol/L (21-32) Anion Gap 4 (6-14) Blood Urea Nitrogen 47 mg/dL (8-26) Creatinine 1.4 mg/dL (0.7-1.3) Estimated GFR (Cockcroft-Gault) 51.4 BUN/Creatinine Ratio 34 (6-20) Glucose Level 125 mg/dL (70-99) Lactic Acid Level 1.1 mmol/L (0.4-2.0) Calcium Level 8.0 mg/dL (8.5-10.1) Magnesium Level 2.3 mg/dL (1.8-2.4) Total Bilirubin 2.6 mg/dL (0.2-1.0) Aspartate Amino Transf (AST/SGOT) 272 U/L (15-37) Alanine Aminotransferase (ALT/SGPT) 36 U/L (16-63) Alkaline Phosphatase 273 U/L (46-116) Ammonia 41 mcmol/L (11-34) Creatine Kinase 43 U/L (39-308) Creatine Kinase MB (Mass) 1.6 ng/mL (0.0-3.6) Creatine Kinase MB Relative Index 3.7 % (0-4) Troponin I Quantitative < 0.017 ng/mL (0-0.055) TP-Kyv-T-Type Natriuretic Peptide 900 pg/mL (0-124) Total Protein 6.3 g/dL (6.4-8.2) Albumin 2.5 g/dL (3.4-5.0) Albumin/Globulin Ratio 0.7 (1.0-1.7) Lipase 380 U/L (73-393) Glucose (Fingerstick) 74 mg/dL (70-99) Test 09/23/17 19:10 09/23/17 19:28 09/23/17 19:35 09/23/17 19:51 Sodium Level 146 mmol/L (136-145) Potassium Level 5.7 mmol/L (3.5-5.1) Chloride Level 107 mmol/L (98-107) Carbon Dioxide Level 34 mmol/L (21-32) Anion Gap 5 (6-14) Blood Urea Nitrogen 49 mg/dL (8-26) Creatinine 1.5 mg/dL (0.7-1.3) Estimated GFR (Cockcroft-Gault) 47.4 Glucose Level 77 mg/dL (70-99) Calcium Level 7.8 mg/dL (8.5-10.1) Ammonia 35 mcmol/L (11-34) Creatine Kinase 78 U/L (39-308) Creatine Kinase MB (Mass) 2.1 ng/mL (0.0-3.6) Creatine Kinase MB Relative Index 2.7 % (0-4) Glucose (Fingerstick) 66 mg/dL (70-99) 120 mg/dL (70-99) Blood Gas pH 7.18 (7.35-7.46) Blood Gas PCO2 103 mmHg (35-46) Blood Gas PO2 56 mmHg (80-100) Blood Gas HCO3 39 mmol/L (21-28) Arterial Bld O2 Saturation (Calc) 80 % (92-99) FiO2 40 % Test 09/23/17 21:06 09/23/17 22:02 09/24/17 00:18 09/24/17 01:10 Glucose (Fingerstick) 115 mg/dL (70-99) 110 mg/dL (70-99) 115 mg/dL (70-99) Troponin I Quantitative < 0.017 ng/mL (0-0.055) Test 09/24/17 05:22 09/24/17 05:55 09/24/17 06:39 Glucose (Fingerstick) 101 mg/dL (70-99) Blood Gas pH 7.22 (7.35-7.46) Blood Gas PCO2 82 mmHg (35-46) Blood Gas PO2 73 mmHg (80-100) Blood Gas HCO3 34 mmol/L (21-28) Arterial Bld O2 Saturation (Calc) 91 % (92-99) FiO2 40 % White Blood Count 6.4 x10^3/uL (4.0-11.0) Red Blood Count 5.71 x10^6/uL (4.30-5.70) Hemoglobin 14.7 g/dL (13.0-17.5) Hematocrit 47.4 % (39.0-53.0) Mean Corpuscular Volume 83 fL (79-100) Mean Corpuscular Hemoglobin 26 pg (25-35) Mean Corpuscular Hemoglobin Concent 31 g/dL (31-37) Red Cell Distribution Width 22.2 % (11.5-14.5) Platelet Count 135 x10^3/uL (140-400) Neutrophils (%) (Auto) 92 % (31-73) Lymphocytes (%) (Auto) 5 % (24-48) Monocytes (%) (Auto) 3 % (0-9) Eosinophils (%) (Auto) 0 % (0-3) Basophils (%) (Auto) 0 % (0-3) Neutrophils # (Auto) 5.9 x10^3uL (1.8-7.7) Lymphocytes # (Auto) 0.3 x10^3/uL (1.0-4.8) Monocytes # (Auto) 0.2 x10^3/uL (0.0-1.1) Eosinophils # (Auto) 0.0 x10^3/uL (0.0-0.7) Basophils # (Auto) 0.0 x10^3/uL (0.0-0.2) Sodium Level 149 mmol/L (136-145) Potassium Level 6.2 mmol/L (3.5-5.1) Chloride Level 109 mmol/L (98-107) Carbon Dioxide Level 31 mmol/L (21-32) Anion Gap 9 (6-14) Blood Urea Nitrogen 53 mg/dL (8-26) Creatinine 1.5 mg/dL (0.7-1.3) Estimated GFR (Cockcroft-Gault) 47.4 BUN/Creatinine Ratio 35 (6-20) Glucose Level 100 mg/dL (70-99) Calcium Level 7.4 mg/dL (8.5-10.1) Total Bilirubin 2.4 mg/dL (0.2-1.0) Aspartate Amino Transf (AST/SGOT) 238 U/L (15-37) Alanine Aminotransferase (ALT/SGPT) 37 U/L (16-63) Alkaline Phosphatase 209 U/L (46-116) Ammonia 92 mcmol/L (11-34) Troponin I Quantitative < 0.017 ng/mL (0-0.055) Total Protein 5.1 g/dL (6.4-8.2) Albumin 2.1 g/dL (3.4-5.0) Albumin/Globulin Ratio 0.7 (1.0-1.7) Current Medications Medications (Trade) Dose Ordered Sig/Julian Route PRN Reason Start Time Stop Time Status Last Admin Dose Admin Dextrose 25 gm 1X ONCE IV 09/23/17 14:00 09/23/17 14:18 DC 09/23/17 15:28 Insulin Human Regular (HumuLIN R VIAL) 10 unit 1X ONCE IV 09/23/17 14:30 09/23/17 14:31 DC 09/23/17 15:28 Albuterol Sulfate (Ventolin) 10 mg 1X ONCE CONT NEB 09/23/17 14:30 09/23/17 14:31 DC 09/23/17 14:54 Sodium Bicarbonate (Sodium Bicarb Adult 8.4% Syr) 50 meq 1X ONCE IV 09/23/17 14:30 09/23/17 14:31 DC 09/23/17 15:27 Sodium Chloride 1,000 ml @ 1,000 mls/hr Q1H IV 09/23/17 17:00 09/23/17 17:59 DC 09/23/17 17:41 Sodium Polystyrene Sulfonate (Kayexalate) 30 gm 1X ONCE SD 09/23/17 17:00 09/23/17 17:08 DC 09/23/17 17:42 Methylprednisolone Sodium Succinate (SOLU-Medrol 125MG VIAL) 125 mg Q8HRS IV 09/23/17 22:00 09/23/17 22:00 DC 09/23/17 20:59 Albuterol Sulfate (Ventolin) 2.5 mg 1X ONCE NEB 09/23/17 17:00 09/23/17 17:08 DC 09/23/17 17:42 Dextrose 25 gm 1X ONCE IV 09/23/17 17:00 09/23/17 17:08 DC 09/23/17 17:41 Insulin Human Regular (HumuLIN R VIAL) 10 unit 1X ONCE IV 09/23/17 17:00 09/23/17 17:08 DC 09/23/17 17:34 Sodium Chloride 1,000 ml @ 200 mls/hr Q5H IV 09/23/17 18:30 09/24/17 05:50 Furosemide (Lasix) 20 mg 1X ONCE IVP 09/23/17 19:00 09/23/17 19:01 DC 09/23/17 19:15 Dextrose 25 gm 1X ONCE IV 09/23/17 19:45 09/23/17 19:46 DC 09/23/17 19:36 Sodium Bicarbonate (Sodium Bicarb Adult 8.4% Syr) 50 meq 1X ONCE IV 09/23/17 21:00 09/23/17 21:01 DC 09/23/17 20:59 Sodium Chloride 1,000 ml @ 200 mls/hr Q5H IV 09/23/17 21:30 09/24/17 02:29 DC Methylprednisolone Sodium Succinate (SOLU-Medrol 125MG VIAL) 125 mg Q6HRS IV 09/24/17 00:00 09/24/17 00:00 DC Albuterol/ Ipratropium (Duoneb) 3 ml QID NEB 09/24/17 09:00 09/24/17 06:04 Sodium Polystyrene Sulfonate (Kayexalate) 50 gm Q6HRS SD 09/24/17 00:00 09/23/17 23:58 Furosemide (Lasix) 40 mg 1X ONCE IVP 09/23/17 21:30 09/23/17 21:34 DC 09/23/17 21:54 Albuterol Sulfate (Ventolin) 2.5 mg PRN Q4HRS PRN NEB SHORTNESS OF BREATH 09/23/17 21:30 Methylprednisolone Sodium Succinate (SOLU-Medrol 125MG VIAL) 125 mg Q6HRS IV 09/24/17 00:00 09/24/17 05:19 Lactulose (Lactulose) 20 gm 1X ONCE PO 09/24/17 07:00 09/24/17 07:01 DC 09/24/17 06:46 Insulin Human Regular (HumuLIN R VIAL) 10 unit 1X ONCE IV 09/24/17 08:00 09/24/17 08:01 Dextrose 25 gm STK-MED ONCE IV 09/24/17 07:28 09/24/17 07:30 DC I & O 09/24/17 00:00 Intake Total 0 ml Output Total 450 ml Balance -450 ml Orders Procedure Category Date Status Time Director Child ER 09/23/17 Transmitted 13:45 Saline Lock ER 09/23/17 Transmitted 13:45 Oxygen Delivery ER 09/23/17 Transmitted 13:45 Ua, Cult If Indicated LAB 09/23/17 Complete 13:45 Drugs Of Abuse Ur LAB 09/23/17 Complete 13:45 Portable Chest 1v RAD 09/23/17 Resulted 13:[address] Head Wo Contrast CT 09/23/17 Resulted 13:45 12 Lead Ekg EKG 09/23/17 Complete 13:45 Pulse Oximetry: [facility] 09/23/17 In Process Standing Order 13:45 Blood Culture ALANA 09/23/17 In Process 13:45 Arterial Blood Gas LAB 09/23/17 Complete 13:[address] Lab MARTINEZ 09/23/17 In Process Order Bmp U 13:51 Vazquez Catheter ER 09/23/17 Transmitted Insertion Dextrose 50% PHA 09/23/17 Complete 14:00 Insulin Regular Vial PHA 09/23/17 Complete (Humulin R Vial) 14:30 Albuterol Sulfate PHA 09/23/17 Complete (Ventolin) 14:30 Airway Inhalation RT 09/23/17 Complete Treatment 13:56 Sodium Bicarb Adult PHA 09/23/17 Complete 8.4% Syr (Sodium Bic 14:30 [place] Order ADT 09/23/17 Transmitted 14:21 Code Status CODE 09/23/17 Transmitted 14:21 Vital Signs, Per [facility] 09/23/17 In Process Protocol 14:21 Nothing By Mouth DIET 09/23/17 Complete Breakfast Ckmb Isoenzymes LAB 09/23/17 Complete 14:28 Lipase LAB 09/23/17 Complete 14:28 Magnesium LAB 09/23/17 Complete 14:28 Nt-Pro Bnp LAB 09/23/17 Complete 14:28 Troponin I LAB 09/23/17 Complete 14:28 Lactic Acid LAB 09/23/17 Complete 14:28 Ammonia LAB 09/23/17 Complete 14:28 Cbc W Autodiff LAB 09/23/17 Complete 14:28 Protime LAB 09/23/17 Complete 14:28 Partial LAB 09/23/17 Complete Thromboplastin Time 14:28 Comprehensive LAB 09/23/17 Complete Metabolic Panel 14:28 Consult Physician By CONS 09/23/17 Transmitted Name 16:03 Admit Orders ADT 09/23/17 Transmitted Nothing By Mouth DIET 09/23/17 Transmitted Dinner Iv Normal Saline PHA 09/23/17 Complete 1,000ml (Iv Sodium 17:00 Sodium Polystyrene PHA 09/23/17 Complete Sulfonate (Kayexalate 17:00 Methylprednisolone PHA 09/23/17 Complete 125mg Vial (Solu-Medr 22:00 Albuterol Sulfate PHA 09/23/17 Complete (Ventolin) 17:00 Dextrose 50% PHA 09/23/17 Complete 17:00 Insulin Regular Vial PHA 09/23/17 Complete (Humulin R Vial) 17:00 Basic Metabolic Panel LAB 09/23/17 Complete 19:30 Ammonia LAB 09/23/17 Complete 19:30 Arterial Blood Gas LAB 09/23/17 Complete 19:30 12 Lead Ekg EKG 09/23/17 Logged 18:14 Troponin I LAB 09/24/17 Complete 00:00 Troponin I LAB 09/24/17 Complete 06:00 Troponin I LAB 09/24/17 Logged 12:00 Creatine Kinase LAB 09/23/17 Complete 18:14 Ckmb Isoenzymes LAB 09/23/17 Complete 18:14 Iv Normal Saline PHA 09/23/17 In Process 1,000ml (Iv Sodium 18:30 Furosemide Inj (Lasix) PHA 09/23/17 Complete 19:00 Dextrose 50% PHA 09/23/17 Complete 19:45 Sodium Bicarb Adult PHA 09/23/17 Complete 8.4% Syr (Sodium Bic 21:00 Iv Normal Saline PHA 09/23/17 Complete 1,000ml (Iv Sodium 21:30 Methylprednisolone PHA 09/24/17 Complete 125mg Vial (Solu-Medr 00:00 Ipratrpium/Albuterol PHA 09/24/17 In Process 0.5/2.5mg (Duoneb) 09:00 Pulse Oximetry: MARTINEZ 09/23/17 In Process Standing Order 21:19 Sodium Polystyrene PHA 09/24/17 In Process Sulfonate (Kayexalate 00:00 Furosemide Inj (Lasix) PHA 09/23/17 Complete 21:30 Albuterol Sulfate PHA 09/23/17 In Process (Ventolin) 21:30 Cbc W Autodiff LAB 09/24/17 Complete 05:00 Comprehensive LAB 09/24/17 Complete Metabolic Panel 05:00 Arterial Blood Gas LAB 09/24/17 Complete 05:00 Methylprednisolone PHA 09/24/17 In Process 125mg Vial (Solu-Medr 00:00 Ammonia LAB 09/24/17 Complete 05:00 Chest Ap Only RAD 09/24/17 Taken 05:00 Pos Pressure RT 09/24/17 Complete Bipap/Cpap Airway Inhalation RT 09/24/17 Complete Treatment 06:00 Airway Inhalation RT 09/24/17 Logged Treatment 13:00 Airway Inhalation RT 09/24/17 Logged Treatment 17:00 Airway Inhalation RT 09/24/17 Logged Treatment 21:00 Airway Inhalation RT 09/25/17 Logged Treatment 09:00 Airway Inhalation RT 09/25/17 Logged Treatment 13:00 Airway Inhalation RT 09/25/17 Logged Treatment 17:00 Airway Inhalation RT 09/25/17 Logged Treatment 21:00 Airway Inhalation RT 09/26/17 Logged Treatment 09:00 Airway Inhalation RT 09/26/17 Logged Treatment 13:00 Airway Inhalation RT 09/26/17 Logged Treatment 17:00 Airway Inhalation RT 09/26/17 Logged Treatment 21:00 Airway Inhalation RT 09/27/17 Logged Treatment 09:00 Airway Inhalation RT 09/27/17 Logged Treatment 13:00 Airway Inhalation RT 09/27/17 Logged Treatment 17:00 Airway Inhalation RT 09/27/17 Logged Treatment 21:00 Airway Inhalation RT 09/28/17 Logged Treatment 09:00 Airway Inhalation RT 09/28/17 Logged Treatment 13:00 Airway Inhalation RT 09/28/17 Logged Treatment 17:00 Airway Inhalation RT 09/28/17 Logged Treatment 21:00 Airway Inhalation RT 09/29/17 Logged Treatment 09:00 Airway Inhalation RT 09/29/17 Logged Treatment 13:00 Airway Inhalation RT 09/29/17 Logged Treatment 17:00 Airway Inhalation RT 09/29/17 Logged Treatment 21:00 Airway Inhalation RT 09/30/17 Logged Treatment 09:00 Airway Inhalation RT 09/30/17 Logged Treatment 13:00 Airway Inhalation RT 09/30/17 Logged Treatment 17:00 Airway Inhalation RT 09/30/17 Logged Treatment 21:00 Airway Inhalation RT 10/01/17 Logged Treatment 09:00 Airway Inhalation RT 10/01/17 Logged Treatment 13:00 Airway Inhalation RT 10/01/17 Logged Treatment 17:00 Airway Inhalation RT 10/01/17 Logged Treatment 21:00 Lactulose (Lactulose) PHA 09/24/17 Complete 07:00 Insulin Regular Vial PHA 09/24/17 In Process (Humulin R Vial) 08:00 Dextrose 50% PHA 09/24/17 Complete 07:28 Vital Signs Date Time Temp Pulse Resp B/P (MAP) Pulse Ox O2 Delivery O2 Flow Rate FiO2 09/24/17 07:00 97.8 82 20 91/60 (70) 92 Venturi Mask DEMETRIA QUINTERO DO Sep 24, 2017 08:28
--- NOTE | 2017-09-24 08:43 | EKG ---
[address] [address] Test Date: 2017-09-23 Test Time: 13:44:13 Pat Name: MARCELINO VARGAS Department: Room: ICU06 1 Gender: M Teacher Aide Clerical: : 1955 Requested By: DEMETRIA QUINTERO Order Number: [id number] Reading MD: Alex Schroeder MD Measurements Intervals [place] Rate: 86 P: -90 DE: 146 QRS: 54 QRSD: 72 T: -36 QT: 346 QTc: 417 Interpretive Statements SINUS RHYTHM LOW LIMB LEAD VOLTAGE Electronically Signed On 09-26-2017 10:37:28 CDT by Alex Schroeder MD
[2017-09-24] MEDS ORDERED: IPRATRPIUM/ALBUTEROL 0.5/2.5MG 3 ML NEBU. NEB SCH (09:00)
[2017-09-24] MEDS ORDERED: LORazepam 2 MG/ML VIAL IV PRN (09:00)
== END 2017-09-24 10:08 | disposition short-term general hospital (02) | DRG 441 ==
LOC: ER 13:42 → EEVIPCON 16:24 → ICU 16:24
PROVIDERS: ADMIT Neuromusculoskeletal Medicine & OMM; ATTEND Neuromusculoskeletal Medicine & OMM
PROC: 5A09357 Assistance with Respiratory Ventilation, Less than 24 Consecutive Hours, Continuous Positive Airway Pressure (ICD-10-PCS; principal; 2017-09-24)
DX: K72.90 Hepatic failure, unspecified without coma (principal); J96.01 Acute respiratory failure with hypoxia; K76.7 Hepatorenal syndrome; E87.2 Acidosis; J44.1 Chronic obstructive pulmonary disease with (acute) exacerbation; N17.9 Acute kidney failure, unspecified; Z66 Do not resuscitate; E87.5 Hyperkalemia; F17.200 Nicotine dependence, unspecified, uncomplicated; B19.20 Unspecified viral hepatitis C without hepatic coma; I11.0 Hypertensive heart disease with heart failure; I50.9 Heart failure, unspecified; I73.9 Peripheral vascular disease, unspecified; K74.60 Unspecified cirrhosis of liver; K21.9 Gastro-esophageal reflux disease without esophagitis; Z85.05 Personal history of malignant neoplasm of liver; Z99.81 Dependence on supplemental oxygen
CPT/HCPCS: 36415; 70450; 71045; 80048; 80053; 80307; 81001; 82140; 82553; 82803; 82947; 83605; 83690; 83735; 83880; 84484; 85025; 85610; 85730; 87040; 93005; 94640; 94660; 96374; 96375; J1815; J1940; J2060; J2930; J7613; J7620; 99285-25; G0479; J7030